=== PATIENT | male | born 1995 | race Caucasian/White ===

== ENCOUNTER 2017-03-18 08:00 | Outpatient (CLI) | payer OTHER ==
[2017-03-19 10:51] LABS: TEST RESULT REPORT (())
== END 2017-03-18 08:01 | disposition home or self-care (01) ==
LOC: LAB.WCP 08:00
PROVIDERS: ATTEND Family Medicine
DX: Z11.3 Encounter for screening for infections with a predominantly sexual mode of transmission (principal)
CPT/HCPCS: 36415; 81599; 86592; 86695; 86696; 87389

== ENCOUNTER 2017-03-18 14:55 | Outpatient (CLI) | payer OTHER | END 2017-03-18 14:56 | disposition home or self-care (01) | LOC: LAB.R 14:55 | PROVIDERS: ATTEND Family Medicine | DX: Z11.3 Encounter for screening for infections with a predominantly sexual mode of transmission (principal) | CPT/HCPCS: 87491; 87591 ==

== ENCOUNTER 2017-09-27 08:00 | Outpatient (CLI) | payer OTHER ==
[2017-09-27 19:51] LABS: BASOPHILS # (AUTO) 0.1 10^3/uL (0.0-0.1); BASOPHILS % (AUTO) 0.6 %; EOSINOPHILS # (AUTO) 0.1 10^3/uL (0.0-0.7); EOSINOPHILS % (AUTO) 1.2 %; LYMPHOCYTES # (AUTO) 2.1 10^3/uL (1.5-3.5); LYMPHOCYTES % (AUTO) 23.7 %; MEAN CORPUSCULAR HEMOGLOBIN 31.7 pg (27.0-31.0); MEAN CORPUSCULAR HGB CONC 33.6 g/dL (32.0-36.0); MEAN CORPUSCULAR VOLUME 94.5 fL (80.0-94.0); MEAN PLATELET VOLUME 8.9 fL (7.4-11.4); MONOCYTES # (AUTO) 0.5 10^3/uL (0.0-1.0); MONOCYTES % (AUTO) 5.9 %; NEUTROPHILS # (AUTO) 6.1 10^3/uL (1.5-6.6); NEUTROPHILS % (AUTO) 68.6 %; PLT - PLATELET COUNT 199 10^3/uL (130-450); RED BLOOD COUNT 4.41 10^6/uL (4.70-6.10); RED CELL DISTRIBUTION WIDTH 12.8 % (12.0-15.0); WHITE BLOOD COUNT 8.9 x10^3/uL (4.8-10.8)
[2017-09-27 20:02] LABS: FREE T4 (FREE THYROXINE) 0.65 ng/dL (0.58-1.64)
[2017-09-27 20:13] LABS: ALBUMIN 4.5 g/dL (3.2-5.5); ALBUMIN/GLOBULIN RATIO 1.3 (1.0-2.2); BILIRUBIN,TOTAL 1.1 mg/dL (0.2-1.0); CALCIUM 9.1 mg/dL (8.5-10.3); TOTAL PROTEIN 7.9 g/dL (6.7-8.2)
== END 2017-09-27 08:01 | disposition home or self-care (01) ==
LOC: LAB.WCP 08:00
PROVIDERS: ATTEND Family Medicine
DX: R22.1 Localized swelling, mass and lump, neck (principal)
CPT/HCPCS: 36415; 80053; 84439; 84443; 85025

== ENCOUNTER 2017-10-05 17:03 | Outpatient (CLI) | payer OTHER ==
--- NOTE | 2017-10-06 09:36 | Ultrasound Report ---
ULTRASOUND OF THE RIGHT NECK: 10/05/2017 CLINICAL INDICATION: Localized swelling. TECHNIQUE: Real-time scanning was performed with consumer sales representative static images obtained. FINDINGS: Ultrasound of the region of localized swelling identified by the patient was performed. The region of swelling appears to correlate with the sternocleidomastoid muscle. No adenopathy or other mass is identified. IMPRESSION: REGION OF SWELLING CORRELATES WITH THE STERNOCLEIDOMASTOID MUSCLE. NO ADENOPATHY OR OTHER MASS IS IDENTIFIED. TD: 10/06/2017 09:35
== END 2017-10-05 17:04 | disposition home or self-care (01) ==
LOC: DI 17:03
PROVIDERS: ATTEND Family Medicine
DX: R22.1 Localized swelling, mass and lump, neck (principal)
CPT/HCPCS: 76536

== ENCOUNTER 2020-12-09 20:53 | Emergency (ER) | payer OTHER ==
--- NOTE | 2020-12-09 21:22 | ED Physician Documentation ---
History of Present Illness - Stated complaint Stated Complaint: RIGHT ARM NUMBNESS, HIGH BP - Chief complaint Chief Complaint: Cardiac - History obtained from History obtained from: Patient - History of Present Illness Timing: Other (various c/o over different time frames (see narrative below)) Pain level now: 0 Improved by: nothing Worsened by: no exacerbating factors - Additonal information Additional information: patient c/o "tingling and numbness" (per patient) of scalp, diffuse and episodic. This has been for a few weeks. 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 He says he was on an antibiotic 3 weeks ago for bilateral sinusitis but that the symptoms of sinusitis have resolved. He also is concerned about RUE numbness "almost like I hit my funny bone", episodic over past 3-4 days. He also c/o generalized weakness x few days. Review of Systems Constitutional: reports: Reviewed and negative Eyes: reports: Reviewed and negative Cardiac: reports: Reviewed and negative Respiratory: reports: Reviewed and negative GI: reports: Reviewed and negative Musculoskeletal: denies: Neck pain, Back pain Neurologic: reports: Generalized weakness, Numbness (paresthesias), Headache. denies: Focal weakness, Head injury PD PAST MEDICAL HISTORY - Past Medical History Cardiovascular: None Respiratory: None Endocrine/Autoimmune: None GI: None : None HEENT: None Psych: None Musculoskeletal: None Derm: None - Allergies Allergies/Adverse Reactions: Allergies Allergy/AdvReac Type Severity Reaction Status Date / Time No Known Drug Allergies Allergy Verified 12/09/20 20:58 PD ED PE NORMAL - Vitals Vital signs reviewed: Yes - General General: Alert and oriented X 3, No acute distress, Well developed/nourished - HEENT HEENT: PERRL, EOMI - Neck Neck: Supple, no meningeal sign - Cardiac Cardiac: RRR, No murmur - Respiratory Respiratory: No respiratory distress, Clear bilaterally - Abdomen Abdomen: Soft, Non tender - Neuro Neuro: Alert and oriented X 3, firebreak cutter 2-12 intact, No motor deficit, No sensory deficit, Normal speech Eye Opening: Spontaneous Motor: Obeys Commands Verbal: Oriented GCS Score: 15 Results - Vitals Vitals: Vital Signs - 24 hr 12/09/20 12/09/20 20:58 22:59 Temperature 36.5 C 36.6 C Heart Rate 67 66 Respiratory 16 16 Rate Blood Pressure 160/80 H 133/79 H O2 Saturation 100 100 Oxygen O2 Source Room air - EKG (time done) No standard instances Rate: Rate (enter#) (67) Rhythm: NSR [place]: Normal Intervals: Normal [place] QRS: LVH Ischemia: Normal ST segments - Labs Labs: Laboratory Tests 12/09/20 12/09/20 21:49 21:49 WBC 6.0 RBC 4.17 L Hgb 14.0 Hct 41.4 L MCV 99.3 H MCH 33.6 H MCHC 33.8 RDW 11.9 L Plt Count 198 MPV 10.0 Neut # (Auto) 3.2 Lymph # (Auto) 1.9 Borden # (Auto) 0.6 Eos # (Auto) 0.2 Baso # (Auto) 0.1 Absolute Nucleated RBC 0.00 Nucleated RBC % 0.0 Sodium 139 Potassium 3.9 Chloride 105 Carbon Dioxide 24 Anion Gap 10.0 BUN 20 Creatinine 1.0 Estimated GFR (MDRD) 90 Glucose 95 Calcium 9.2 Total Bilirubin 1.5 H AST 28 ALT 20 Alkaline Phosphatase 56 Total Protein 7.7 Albumin 4.6 Globulin 3.1 Albumin/Globulin Ratio 1.5 Lipase 28 - Rads (name of study) CT head Radiology: Prelim report reviewed, See rad report PD MEDICAL DECISION MAKING - ED course Complexity details: reviewed results, re-evaluated patient, considered differential, d/w patient ED course: patient has several seemingly unrelated c/o that are over varying timeframes. His RUE paresthesias could represent elbow neuropathy (such as nerve entrapment), but this is more appropriately assessed in outpatient setting and I encouraged him to seek follow up for this and his other concerns. His testing tonight does not demonstrate emergent pathology nor suggest etiology of his various symptoms Departure - Departure Disposition: 01 Home, Self Care Clinical Impression: Paresthesias Condition: Good Instructions: ED Paraesthesias Comments: Contact your primary care provider to arrange for next available appointment Discharge Date/Time: 12/09/20 22:59
[2020-12-09 21:58] LABS: BASOPHILS # (AUTO) 0.1 10^3/uL (0.0-0.1); BASOPHILS % (AUTO) 0.8 %; EOSINOPHILS # (AUTO) 0.2 10^3/uL (0.0-0.7); EOSINOPHILS % (AUTO) 3.7 %; HCT - HEMATOCRIT 41.4 % (42.0-52.0); LYMPHOCYTES # (AUTO) 1.9 10^3/uL (1.5-3.5); LYMPHOCYTES % (AUTO) 31.6 %; MEAN CORPUSCULAR HEMOGLOBIN 33.6 pg (27.0-31.0); MEAN CORPUSCULAR HGB CONC 33.8 g/dL (32.0-36.0); MEAN CORPUSCULAR VOLUME 99.3 fL (80.0-94.0); MONOCYTES # (AUTO) 0.6 10^3/uL (0.0-1.0); MONOCYTES % (AUTO) 10.4 %; NEUTROPHILS # (AUTO) 3.2 10^3/uL (1.5-6.6); NEUTROPHILS % (AUTO) 53.3 %; PLT - PLATELET COUNT 198 10^3/uL (130-450); RED BLOOD COUNT 4.17 10^6/uL (4.70-6.10); RED CELL DISTRIBUTION WIDTH 11.9 % (12.0-15.0)
[2020-12-09 22:10] LABS: ALBUMIN 4.6 g/dL (3.2-5.5); ALBUMIN/GLOBULIN RATIO 1.5 (1.0-2.2); BILIRUBIN,TOTAL 1.5 mg/dL (0.2-1.0); CALCIUM 9.2 mg/dL (8.5-10.3); POTASSIUM 3.9 mmol/L (3.5-5.0); TOTAL PROTEIN 7.7 g/dL (6.7-8.2)
[2020-12-09 23:00] VITALS: BP 133/79
--- NOTE | 2020-12-10 08:25 | CT Report ---
PROCEDURE: HEAD WO INDICATIONS: headache, paresthesias TECHNIQUE: Noncontrast 4.5 mm thick angled axial sections acquired from the foramen magnum to the vertex. For r adiation dose reduction, the following was used: automated exposure control, adjustment of mA and/or kV according to patient size. COMPARISON: None. FINDINGS: Image quality: Excellent. CSF spaces: Basal cisterns are patent. No extra-axial fluid collections. Ventricles are normal in size and shape. Brain: No midline shift. No intracranial masses or hemorrhage. Laurent-white matter interface is norm al. Skull and face: Calvarium and visualized facial bones are intact, without suspicious lesions. Sinuses: Visualized sinuses and mastoids are clear. IMPRESSION: Normal for age, source of current symptoms is not seen. Reviewed by: Gunner York MD on 12/10/2020 8:23 AM PDT Approved by: Gunner York MD on 12/10/2020 8:23 AM PDT Station ID: [id number]
== END 2020-12-09 22:59 | disposition home or self-care (01) ==
LOC: ED 20:53
DX: R20.2 Paresthesia of skin (principal)
CPT/HCPCS: 36415; 80053; 83690; 85025; 93005; 99284

== ENCOUNTER 2021-01-21 10:31 | Emergency (ER) | payer OTHER ==
--- OUTSIDE RECORDS SUMMARY | 2021-01-21 10:35 | EXTERNAL MEDICAL SUMMARY RPT | Continuity of Care Document ---
:1995 Demographics Phone Unavailable Preferred Language Unknown Marital Status Unknown Synagogue Affiliation Unknown Race Unknown Ethnic Group Unknown Author Organization [facility] Address [address] [place] [address] Phone Allergies Encounters Medications Problems Results
[2021-01-21] MEDS ORDERED: SODIUM CHLORIDE 0.9% 1,000 ML IV STA (10:45)
--- NOTE | 2021-01-21 10:57 | XRAY Report ---
PROCEDURE: Chest 1 View X-Ray INDICATIONS: Chest pain TECHNIQUE: One view of the chest was acquired. COMPARISON: None FINDINGS: Surgical changes and devices: None. Lungs and pleura: No pleural effusions or pneumothorax. Lungs are clear. Mediastinum: Mediastinal contours appear normal. Heart size is normal. Bones and chest wall: No suspicious bony lesions. Overlying soft tissues appear unremarkable. IMPRESSION: No acute cardiopulmonary process demonstrated radiographically. Reviewed by: Gato Calzada MD on 01/21/2021 10:56 AM PDT Approved by: Gato Calzada MD on 01/21/2021 10:56 AM PDT Station ID: [id number]
--- OUTSIDE RECORDS SUMMARY | 2021-01-21 11:03 | EXTERNAL MEDICAL SUMMARY RPT | Continuity of Care Document ---
:1995 Demographics Phone Unavailable Preferred Language Unknown Marital Status Unknown Amish Affiliation Unknown Race Unknown Ethnic Group Unknown Author Organization [facility] Address [address] [place] [address] Phone Allergies Encounters Medications Problems Results
[2021-01-21 11:09] LABS: BASOPHILS # (AUTO) 0.1 10^3/uL (0.0-0.1); BASOPHILS % (AUTO) 0.9 %; EOSINOPHILS # (AUTO) 0.2 10^3/uL (0.0-0.7); EOSINOPHILS % (AUTO) 2.7 %; HCT - HEMATOCRIT 42.4 % (42.0-52.0); LYMPHOCYTES # (AUTO) 1.7 10^3/uL (1.5-3.5); LYMPHOCYTES % (AUTO) 24.3 %; MEAN CORPUSCULAR HEMOGLOBIN 33.7 pg (27.0-31.0); MEAN CORPUSCULAR HGB CONC 35.4 g/dL (32.0-36.0); MEAN CORPUSCULAR VOLUME 95.3 fL (80.0-94.0); MEAN PLATELET VOLUME 9.5 fL (7.4-11.4); MONOCYTES # (AUTO) 0.5 10^3/uL (0.0-1.0); NEUTROPHILS # (AUTO) 4.5 10^3/uL (1.5-6.6); NEUTROPHILS % (AUTO) 64.7 %; PLT - PLATELET COUNT 239 10^3/uL (130-450); RED BLOOD COUNT 4.45 10^6/uL (4.70-6.10); RED CELL DISTRIBUTION WIDTH 11.9 % (12.0-15.0)
[2021-01-21 11:26] LABS: ALBUMIN 4.7 g/dL (3.2-5.5); ALBUMIN/GLOBULIN RATIO 1.3 (1.0-2.2); BILIRUBIN,TOTAL 0.8 mg/dL (0.2-1.0); CALCIUM 9.5 mg/dL (8.5-10.3); CREATININE 0.9 mg/dL (0.6-1.2); POTASSIUM 3.4 mmol/L (3.5-5.0); TOTAL PROTEIN 8.2 g/dL (6.7-8.2)
[2021-01-21] MEDS ORDERED: GI COCKTAIL 120 ML BOTTLE PO STA (11:51)
--- NOTE | 2021-01-21 12:03 | ED Physician Documentation ---
PD HPI ABD PAIN - Stated complaint Stated Complaint: CHEST PX - Chief complaint Chief Complaint: Cardiac - History obtained from History obtained from: Patient - Additional information Additional information: Patient comes emergency department chief complaint of upper abdominal pain and just generally not feeling well after escalating alcohol use. Patient states that he is drinking anywhere from 5-8 drinks of hard alcohol on a daily basis. Last night, he may have drank as many as 10 because he got engaged. Patient states that he Is otherwise healthy and not on any medications. He is occasiona lly felt nauseated but has had not had any vomiting. Patient's other complaint is that he has had nasal and sinus congestion for the last few years and it never seems to get better. He has had a CT of his sinuses which showed no fluid, and he states that multiple rounds of antibiotics do not seem to have done any good. No other complaints at this time. Review of Systems Ten Systems: 10 systems reviewed and negative Constitutional: reports: Reviewed and negative Eyes: reports: Reviewed and negative Ears: reports: Reviewed and negative Nose: reports: Reviewed and negative Throat: reports: Reviewed and negative Cardiac: reports: Reviewed and negative Respiratory: reports: Reviewed and negative GI: reports: Abdominal Pain, Nausea. denies: Vomiting : reports: Reviewed and negative Skin: reports: Reviewed and negative Musculoskeletal: reports: Reviewed and negative Neurologic: reports: Reviewed and negative Psychiatric: reports: Reviewed and negative Endocrine: reports: Reviewed and negative Immunocompromised: reports: Reviewed and negative PD PAST MEDICAL HISTORY - Past Medical History Cardiovascular: None Respiratory: None Endocrine/Autoimmune: None GI: None : None HEENT: None Psych: None Musculoskeletal: None Derm: None - Present Medications Home Medications: Ambulatory Orders Medication Instructions Recorded Confirmed Pseudoephedrine [Sudafed] 30 mg PO Q6H PRN #10 tablet 01/21/21 - Allergies Allergies/Adverse Reactions: Allergies Allergy/AdvReac Type Severity Reaction Status Date / Time No Known Drug Allergies Allergy Verified 01/21/21 10:40 - Social History Does the pt smoke?: No Smoking Status: Never smoker Does the pt drink ETOH?: No Does the pt have substance abuse?: No - Immunizations Immunizations are current?: Yes - POLST Patient has POLST: No PD ED PE NORMAL - Vitals Vital signs reviewed: Yes - General General: Alert and oriented X 3, No acute distress - HEENT HEENT: Atraumatic, PERRL, EOMI, Moist mucous membranes - Neck Neck: Supple, no meningeal sign - Cardiac Cardiac: No murmur, Strong equal pulses, Other (Tachycardic rate regular rhythm) - Respiratory Respiratory: No respiratory distress, Clear bilaterally - Abdomen Abdomen: Soft, Non tender, Non distended - Derm Derm: Normal color, Warm and dry, No rash - Extremities Extremities: No deformity, No edema, No calf tenderness / cord - Neuro Neuro: Alert and oriented X 3, associate spa director 2-12 intact, Normal speech - Psych Psych: Normal mood, Normal affect Results - Vitals Vitals: Vital Signs - 24 hr 01/21/21 10:40 Temperature 37.3 C Heart Rate 108 H Respiratory 18 Rate Blood Pressure 153/76 H O2 Saturation 100 Oxygen O2 Source Room air - Labs Labs: Laboratory Tests 01/21/21 01/21/21 01/21/21 10:56 10:56 10:56 WBC 7.0 RBC 4.45 L Hgb 15.0 Hct 42.4 MCV 95.3 H MCH 33.7 H MCHC 35.4 RDW 11.9 L Plt Count 239 MPV 9.5 Neut # (Auto) 4.5 Lymph # (Auto) 1.7 Dane # (Auto) 0.5 Eos # (Auto) 0.2 Baso # (Auto) 0.1 Absolute Nucleated RBC 0.00 Nucleated RBC % 0.0 Sodium 138 Potassium 3.4 L Chloride 103 Carbon Dioxide 19 L Anion Gap 16.0 H BUN 17 Creatinine 0.9 Estimated GFR (MDRD) 101 Glucose 106 H Calcium 9.5 Total Bilirubin 0.8 AST 32 ALT 19 Alkaline Phosphatase 53 Troponin I High Sens 3.8 Total Protein 8.2 Albumin 4.7 Globulin 3.5 Albumin/Globulin Ratio 1.3 Lipase 52 H PD MEDICAL DECISION MAKING - ED course Complexity details: reviewed results, re-evaluated patient, considered differential, d/w patient ED course: Patient was treated with IV fluids which did improve his tachycardia. He was also given a GI cocktail. His laboratory studies were unremarkable. I have discussed with him the importance of quitting drinking, as his level of drinking does seem to be excessive at this point in time. The patient understands he has a problem and states that he will pursue cessation. We have discussed home management of symptoms, as well as the usual indications for return. Departure - Departure Disposition: Home, Self Care Clinical Impression: Alcohol abuse, Dehydration, Nasal sinus congestion Condition: Stable Instructions: ED Dehydration, ED Alcohol Abuse Follow-Up: Derek Baird MD [Physician No Access] - Prescriptions: Pseudoephedrine [Sudafed] 30 mg PO Q6H PRN #10 tablet PRN Reason: As Needed Per Provider Orders Comments: Your labs look good today. You have shown signs of dehydration and have been treated with IV fluids for this.
[2021-01-21 12:20] VITALS: BP 148/90
== END 2021-01-21 12:19 | disposition home or self-care (01) ==
LOC: ED 10:31
DX: F10.10 Alcohol abuse, uncomplicated (principal); E86.0 Dehydration; R11.0 Nausea; R10.10 Upper abdominal pain, unspecified; R00.0 Tachycardia, unspecified; R09.81 Nasal congestion
CPT/HCPCS: 36415; 71045; 80053; 83690; 84484; 85025; 93005; 96360; 99284; A9270

== ENCOUNTER 2021-08-27 08:00 | Outpatient (CLI) | payer OTHER | END 2021-08-27 23:59 | LOC: LAB 08:00 | PROVIDERS: ATTEND Physician Assistant | DX: U07.1 COVID-19 (principal) | CPT/HCPCS: 87275; 87276 ==

== ENCOUNTER 2021-11-12 15:19 | Outpatient (CLI) | payer OTHER ==
--- NOTE | 2021-11-12 15:57 | XRAY Report ---
PROCEDURE: Hand 3 View RT INDICATIONS: RIGHT HAND PAIN TECHNIQUE: 3 views of the hand(s) acquired. COMPARISON: None FINDINGS: Bones: No fractures or dislocations. No suspicious bony lesions. Soft tissues: No suspicious soft tissue calcifications. IMPRESSION: No osseous lesion. If there are persistent symptoms or continued clinical concern for pathology, then repeat plain film radiographs (7-10 days) or advanced imaging (CT, MR, bone scan) should be consider ed for further evaluation. Reviewed by: Melany Doss MD, PhD on 11/12/2021 3:55 PM PDT Approved by: Melany Doss MD, PhD on 11/12/2021 3:55 PM PDT Station ID: [id number]
== END 2021-11-12 23:59 | disposition home or self-care (01) ==
LOC: DI.S 15:19
PROVIDERS: ATTEND Registered Nurse
DX: M25.541 Pain in joints of right hand (principal)

== ENCOUNTER 2022-01-07 08:00 | Outpatient (CLI) | payer OTHER ==
--- NOTE | 2022-01-07 17:27 | XRAY Report ---
PROCEDURE: Hand 3 View RT INDICATIONS: RIGHT HAND PAIN/SWELLING TECHNIQUE: 3 views of the hand(s) acquired. COMPARISON: None FINDINGS: Bones: No fractures or dislocations. No suspicious bony lesions. Soft tissues: No suspicious soft tissue calcifications. IMPRESSION: Intact right hand. Reviewed by: Sylvie Powell MD on 01/07/2022 5:26 PM PDT Approved by: Sylvie Powell MD on 01/07/2022 5:26 PM PDT Station ID: [id number]
== END 2022-01-07 23:59 | disposition home or self-care (01) ==
LOC: DI.S 08:00
PROVIDERS: ATTEND Physician Assistant Medical
DX: M79.641 Pain in right hand (principal); R22.31 Localized swelling, mass and lump, right upper limb